=== PATIENT | female | born 1990 | race African-American/Black ===

== ENCOUNTER → 2018-11-05 | Outpatient (CLI) | payer OTHER ==
--- NOTE | 2018-11-06 07:19 | ECHO ---
DATE OF PROCEDURE: 11/05/2018 REFERRING PHYSICIAN: Dr. Jose Dias. INDICATION: Heart murmur unspecified. HEIGHT: 66 inches. WEIGHT: 180 pounds. MEASUREMENTS: LVOT: 1.9 cm Aortic root: 2.1 cm Left atrium: 3.3 cm Ventricular septum: 1.14 cm Posterior wall: 1.07 cm Left ventricle diastole: 4.3 cm Proximal ascending aorta: 2.2 cm Inferior vena cava: 2.0 cm DOPPLER MEASUREMENTS: Aortic valve velocity: 200 cm/s LVOT velocity: 132 cm/s No aortic regurgitation. Trace mitral regurgitation within normal limits. Mitral E velocity: 78.2 cm/s Mitral A velocity: 54.7 cm/s Mild tricuspid regurgitation. Estimated right ventricular systolic pressure 29 mmHg assuming an atrial pressure of 5 mmHg. Mild pulmonic regurgitation within normal limits. Pulmonary artery systolic pressure 21 mmHg. MITRAL ANNULAR TISSUE DOPPLER: E-prime septal: 9.4 cm/s E-prime lateral: 11.4 cm/s DESCRIPTION: Rhythm was sinus. Image quality was good. This was a 2D, M-mode, color flow Doppler and pulsed wave Doppler examination and included mitral annular tissue Doppler. CONCLUSIONS: 1. Mild nonspecific focal thickening of a 3-cusp aortic valve. No aortic regurgitation or stenosis. 2. Normal left ventricle internal dimensions and wall thickness. Normal regional LV wall motion and wall thickening. Normal LV systolic function. Normal LV diastolic function. Normal RV size and systolic function. Normal size of atria. 3. Structurally and functionable mitral, tricuspid, and pulmonic valve. 4. Very small pericardial effusion.
== END ==
LOC: M CARPUL 08:28
PROVIDERS: ATTEND Obstetrics & Gynecology
DX: R01.1 Cardiac murmur, unspecified (principal)

== ENCOUNTER → 2020-08-24 | Outpatient (REF) | payer OTHER | LOC: M LAB REF 19:47 | PROVIDERS: ATTEND Nurse Practitioner Family | DX: N76.0 Acute vaginitis (principal) ==

== ENCOUNTER → 2020-10-06 | Outpatient (CLI) | payer SELFPAY | LOC: M LABSMTC 09:22 | PROVIDERS: ATTEND Pediatrics | DX: Z20.822 Contact with and (suspected) exposure to COVID-19 (principal) ==